=== PATIENT | male | born 1975 | race Caucasian/White ===

== ENCOUNTER 2016-05-23 08:57 | Emergency (ER) | payer OTHER ==
--- NOTE | 2016-05-23 11:04 | ER PHYSICIAN DOCUMENTATION ---
Physician Documentation [facility] Name:Issa Rodriguez Age:41 yrs Sex:Male :1975 Arrival Date:05/23/2016 Time:08:57 Bed1 Private MD:Shanta Shaffer Mark ED PhysicianChew, Scott Disposition: 05/23/16 10:52 Discharged to Home/Self Care. Impression: Bronchitis Acute. - Condition is Good. - Prescriptions for Zithromax Z- [place] 250 mg Oral Tablet - take 1 tablet by ORAL route as directed for 5 days Day 1 - take two (2) tablets one time. Day 2, 3, 4 , 5 take one (1) tablet once daily.; 6 tablet. - Medical Reconciliation form form. - Follow up: Private Physician; When: As needed; Reason: Worsening of condition. - Problem is new. - Symptoms are unchanged. HPI: 05/23 10:57 This 41 yrs old Male presents to ER via Walk In with complaints of Fever. sc 10:57 The patient reports fever, not measured (subjective). Onset: The symptom(s)/episode sc began/occurred 2 day(s) ago. Associated signs and symptoms: Pertinent positives: arthralgias, chills, cough. Severity of symptoms: At their worst the symptoms were moderate. The patient has experienced similar episodes in the past, a few times. Historical: - Allergies: No known drug Allergies; - Home Meds: 1. Aciphex Oral - PMHx: GERD; - PSHx: NA ; - Tetanus: Other NA today. - Ebola Screening: : No symptoms or risks identified at this time. . - Immunization history: Flu Vaccine < 1 year. - Social history: Smoking status: Patient states was never smoker of tobacco. Patient uses alcohol but reports only rare drinking. ROS: 10:57 Eyes: Negative for injury, pain, redness, and discharge. sc Cardiovascular: Negative for chest pain, palpitations, and edema. Abdomen/GI: Negative for abdominal pain, nausea, vomiting, diarrhea, and constipation. Back: Negative for injury and pain. MS/Extremity: Negative for injury and deformity. Skin: Negative for injury, rash, and discoloration. 10:57 Neuro: Negative for headache, weakness, numbness, tingling, and seizure. sc 10:57 Constitutional: Positive for body aches, chills, fatigue, fever. 10:57 ENT: Positive for rhinorrhea, sinus congestion. 10:57 Respiratory: Positive for cough. Exam: Constitutional: This is a well developed, well nourished patient who is awake, alert, and in no acute distress. Head/Face: Normocephalic, atraumatic. Eyes: Pupils equal round and reactive to light, extra-ocular motions intact. Lids and lashes normal. Conjunctiva and sclera are non-icteric and not injected. Cornea within normal limits. Periorbital areas with no swelling, redness, or edema. ENT: Nares patent. No nasal discharge, no septal abnormalities noted. Tympanic membranes are normal and external auditory canals are clear. Oropharynx with no redness, swelling, or masses, exudates, or evidence of obstruction, uvula midline. Mucous membranes moist. Neck: Trachea midline, no thyromegaly or masses palpated, and no cervical lymphadenopathy. Supple, full range of motion without nuchal rigidity, or vertebral point tenderness. No meningismus. Chest/axilla: Normal chest wall appearance and motion. Nontender with no deformity. No lesions are appreciated. Cardiovascular: Regular rate and rhythm with a normal S1 and S2. No gallops, murmurs, or rubs. Normal PMI, no JVD. No pulse deficits. Respiratory: Lungs have equal breath sounds bilaterally, clear to auscultation and percussion. No rales, rhonchi or wheezes noted. No increased work of breathing, no retractions or nasal flaring. Back: No spinal tenderness. No costovertebral tenderness. Full range of motion. 10:58 Skin: Warm, dry with normal turgor. Normal color with no rashes, no lesions, and no sc evidence of cellulitis. Vital Signs: 09:15 BP 140 / 88; Pulse 89; Resp 16; Temp 98.4; Pulse Ox 91% on R/A; Weight 106.59 kg; nf Height 5 ft. 10 in. (177.80 cm); Pain 0/10; 11:00 BP 132 / 84; Pulse 81; Resp 16; Pain 0/10; nf 09:15 Body Mass Index 33.72 (106.59 kg, 177.80 cm) nf MDM: 09:02 Patient medically screened. sc 10:58 Differential diagnosis: viral Infection, bacterial infection, URI, bronchitis. Data sc reviewed: vital signs, nurses notes, lab test result(s), and as a result, I will discharge patient. 05/23 09:50 Order name: INFLUENZA A/B; Complete Time: 10:33 EDMS 05/23 10:33 Interpretation: Normal. sc Dispensed Medications: No medications were administered Signatures: Nasreen Oneal RN RN nf Chew, Scott, MD MD ut
--- NOTE | 2016-05-23 11:04 | ER NURSING DOCUMENTATION ---
Nurse's Notes [facility] Name:Issa Rodriguez Age:41 yrs Sex:Male :1975 Arrival Date:05/23/2016 Time:08:57 Bed1 Private MD:Blaise Shaffer; Wang Rizvi Diagnosis:Bronchitis Acute Presentation: 05/23 09:05 Transition of care: patient was not received from another setting of care. Notified ED nf Physician of patient's arrival and CC Dr. Rodriguez notified. 09:05 Acuity: MINNIE 4 nf 09:15 Presenting complaint: Patient states: since Tuesday night tired, body aches, fever, nf cough; is immunocompromised. 09:15 Method Of Arrival: Walk In nf Triage Assessment: 09:15 General: Appears well nourished, well groomed, Behavior is pleasant. Pain: Denies pain. nf 09:15 Neuro: No deficits noted. Respiratory: Respiratory effort is even, unlabored, nf Respiratory pattern is regular, Breath sounds are clear bilaterally. Reports cough that is productive, green sputum. Derm: No deficits noted. Skin is pink, warm & dry. Historical: - Allergies: No known drug Allergies; - Home Meds: 1. Aciphex Oral - PMHx: GERD; - PSHx: NA ; - Tetanus: Other NA today. - Ebola Screening: : No symptoms or risks identified at this time. . - Immunization history: Flu Vaccine < 1 year. - Social history: Smoking status: Patient states was never smoker of tobacco. Patient uses alcohol but reports only rare drinking. Screenin:15 Infectious Disease Risk None. Abuse screen: Denies threats or abuse. Nutritional nf screening: No deficits noted. Assessment: 09:15 See Triage Assessment done by same RN. nf 09:15 Respiratory: Respiratory effort is even, unlabored, Breath sounds are clear bilaterally.nf Vital Signs: 09:15 BP 140 / 88; Pulse 89; Resp 16; Temp 98.4; Pulse Ox 91% on R/A; Weight 106.59 kg; nf Height 5 ft. 10 in. (177.80 cm); Pain 0/10; 11:00 BP 132 / 84; Pulse 81; Resp 16; Pain 0/10; nf 09:15 Body Mass Index 33.72 (106.59 kg, 177.80 cm) nf ED Course: 08:58 Patient arrived in ED. arc 08:59 Blaise Shaffer MD is Private Physician. arc 08:59 Wang Rizvi MD is Private Physician. arc 09:02 Kevin Rodriguez MD is Attending Physician. sc 09:05 Nasreen Oneal RN is Primary Nurse. nf 09:05 Triage completed. nf 09:15 Valuables Remains with patient Patient has correct armband on for positive nf identification. Bed in low position. Call light in reach. Side rails up X 1. Door closed. Noise minimized. Lights dimmed. Moved to private room. Verbal reassurance given. Pillow given. declines blanket and drinking fluids brought from home. 09:32 Flu Swab done. nf Administered Medications: No medications were administered Outcome: 10:52 Discharge ordered by . pr 11:02 Discharged to home ambulatory. nf 11:02 Condition: good 11:02 Discharge Assessment: Patient awake, alert and oriented x 3. No cognitive and/or functional deficits noted. Patient verbalized understanding of disposition instructions. 11:02 Discharge instructions given to patient, Instructed on discharge instructions, medication usage, Demonstrated understanding of instructions, medications, Prescriptions given X 1, z pack 11:04 Patient left the ED. nf 03/06 09:27 Discharge F/U Call: Unable to reach: left message with person person taking message: st message left with a friend that if pt had any questions or concerns to give the ED a call. Signatures: Ana Richardson RN RN st Friel, Nicole, RN RN nf Chew, Scott, MD MD pr Olga Lidia Rodriguez, Reg Reg arc
== END 2016-05-23 11:04 | disposition home or self-care (01) ==
LOC: ER 08:57
DX: J20.9 Acute bronchitis, unspecified (principal)
CPT/HCPCS: 87449; 99282